=== PATIENT | male | born 1970 | race Caucasian/White ===

== ENCOUNTER 2016-09-06 06:04 | Emergency (ER) | payer OTHER, SELFPAY ==
[2016-09-06] MEDS ORDERED: Acetaminophen 500 MG TAB ONE (06:24)
[2016-09-06] MEDS ORDERED: AMOXicillin 250 MG CAP ONE (06:24)
[2016-09-06] MEDS ORDERED: Ketorolac Tromethamine 60 MG/2 ML VIAL ONE (06:24)
== END 2016-09-06 06:45 | disposition home or self-care (01) ==
LOC: NAV ERS 06:04
DX: K02.9 Dental caries, unspecified (principal); I10 Essential (primary) hypertension; Z87.891 Personal history of nicotine dependence
CPT/HCPCS: 96372; J1885